=== PATIENT | female | born 1980 ===

== ENCOUNTER 2017-02-13 01:02 | Emergency (ER) | payer OTHER ==
[2017-02-13 01:19] VITALS: BP 140/80; PULSE 60; RESP 16; TEMP 98.1; O2SAT 98
[2017-02-13] MEDS ORDERED: Sodium Chloride 0.9% 1,000 ML IV STA (01:25)
--- NOTE | 2017-02-13 01:29 | ED PDOC ---
HPI: Female Pain Time Seen by Provider: 02/13/17 01:06 Chief Complaint (Nursing): Female Genitourinary Chief Complaint (Provider): UTI History Per: Patient Additional Complaint(s): 36 yo female, no PMH, presents to ED with complaints of UTI likely since Tuesday. Pt reports burning or urination, and blood in her urine. Pt was taking Azo with mild relief and trying to drink Cranberry Juice. Pt notes today pain went to her back and she became nauseous, prompting ED visit. No fevers Past Medical History Reviewed: Nursing Documentation, Vital Signs Vital Signs: Last Vital Signs Temp 98.1 F 02/13/17 01:16 Pulse 60 02/13/17 01:16 Resp 16 02/13/17 01:16 BP 140/80 02/13/17 01:16 Pulse Ox 98 02/13/17 01:16 - Medical History PMH: No Chronic Diseases - Surgical History Surgical History: No Surg Hx - Family History Family History: States: Unknown Family Hx - Home Medications Home Medications: Ambulatory Orders Medication Instructions Recorded Cephalexin [cephalexin] 500 mg PO BID 10 Days 02/13/17 oxyCODONE/Acetaminophen [Percocet 1 ea PO Q6 PRN #5 tab 02/13/17 5/325 mg Tab] - Allergies Allergies/Adverse Reactions: Allergies Allergy/AdvReac Type Severity Reaction Status Date / Time No Known Allergies Allergy Verified 02/13/17 01:15 Review of Systems ROS Statement: Except As Marked, All Systems Reviewed And Found Negative Genitourinary Female: Positive for: Dysuria, Hematuria Physical Exam - Reviewed Nursing Documentation Reviewed: Yes Vital Signs Reviewed: Yes - Physical Exam Appears: Positive for: Well, Non-toxic, No Acute Distress Head Exam: Positive for: ATRAUMATIC, NORMAL INSPECTION, NORMOCEPHALIC Skin: Positive for: Normal Color, Warm, DRY Eye Exam: Positive for: EOMI, Normal appearance, PERRL ENT: Positive for: Normal ENT Inspection Neck: Positive for: Normal, Painless ROM Cardiovascular/Chest: Positive for: Regular Rate, Rhythm Respiratory: Positive for: CNT, Normal Breath Sounds Gastrointestinal/Abdominal: Positive for: Normal Exam, Bowel Sounds, Soft Back: Positive for: L CVA Tenderness, R CVA Tenderness Extremity: Positive for: Normal ROM Neurologic/Psych: Positive for: Alert, Oriented - Laboratory Results Result Diagrams: 02/13/17 01:25 02/13/17 01:25 - ECG O2 Sat by Pulse Oximetry: 98 Medical Decision Making Medical Decision Making: Iv access established and treatment initiated with NS and Toradol Dip resulted (+) leuks, nites and blood IV Rocephin added Labs resulted and reviewed with pt who demonstrated full understanding Pt doing well on re-eval, no complaints of pain Disposition - Clinical Impression Clinical Impression: Urinary tract infection - Patient ED Disposition Is Patient to be Admitted: No - Disposition Disposition: Routine/Home Disposition Time: 03:52 Condition: STABLE Prescriptions: Cephalexin [cephalexin] 500 mg PO BID 10 Days oxyCODONE/Acetaminophen [Percocet 5/325 mg Tab] 1 ea PO Q6 PRN #5 tab PRN Reason: Pain, Severe (8-10) Instructions: Urinary Tract Infection in Women (ED)
[2017-02-13 01:43] LABS: BASO % 0.4 % (0.0-2.0); EOS # 0.5 K/uL (0.0-0.7); EOS % 4.6 % (0.0-4.0); HEMATOCRIT 37.8 % (34.0-47.0); LYMPH # 3.3 K/uL (1.0-4.3); LYMPH % 29.8 % (20.0-40.0); MEAN CELL VOLUME 94.1 fl (81.0-99.0); MEAN CORPUSCULAR HEMOGLOBIN 32.2 pg (27.0-31.0); MEAN CORPUSCULAR HGB CONC 34.3 g/dL (33.0-37.0); MEAN PLATELET VOLUME 9.5 fl (7.2-11.7); MONO # 0.8 K/uL (0.0-0.8); NEUT # 6.5 K/uL (1.8-7.0); NEUT % 58.2 % (50.0-75.0); NRBC % 0.1 % (0.0-0.0); RED CELL DISTRIBUTION WIDTH 13.4 % (11.5-14.5); WHITE BLOOD COUNT 11.2 K/uL (4.8-10.8)
[2017-02-13 01:47] LABS: RBC URINE 10 /hpf (0-3); URINE BACTERIA RARE (<OCC); URINE BILIRUBIN NEGATIVE (NEGATIVE); URINE BLOOD NEGATIVE (NEGATIVE); URINE COLOR AMBER (YELLOW); URINE GLUCOSE (UA) NEG (Normal); URINE KETONE NEGATIVE (NEGATIVE); URINE LEUKOCYTE ESTERASE TRACE Leu/uL (Negative); URINE PROTEIN 30 mg/dL (NEGATIVE); WBC URINE 36 /hpf (0-5)
[2017-02-13 01:49] LABS: CHLORIDE 100 mmol/L (98-107); POTASSIUM 3.7 MMOL/L (3.6-5.0); SODIUM 138 mmol/l (132-148)
[2017-02-13 01:51] LABS: AST/SGOT 38 U/L (14-36); BILIRUBIN,TOTAL 0.5 mg/dl (0.2-1.3); CARBON DIOXIDE 28 mmol/L (22-30); GFR AFRICAN-AMERICAN > 60
[2017-02-13 01:52] LABS: ALB/GLOB RATIO 1.3 (1.0-2.1); ALKALINE PHOSPHATASE 57 U/L (38-126); ALT/SGPT 42 U/L (9-52); BLOOD UREA NITROGEN 12 mg/dl (7-17); CALCIUM 9.4 mg/dL (8.4-10.2); GLUCOSE,RANDOM 100 mg/dL (65-105); TOTAL PROTEIN 7.5 G/DL (6.3-8.2)
[2017-02-13] MEDS ORDERED: cefTRIAXone (Rocephin) 1 gm Inj ONE (02:07)
[2017-02-13] MEDS ORDERED: Oxycodone/Acetaminophen 5/325 mg Tab PO STA (02:37)
[2017-02-13] MEDS ORDERED: Oxycodone/Acetaminophen 5/325 mg Tab ONE (02:44)
== END 2017-02-13 03:05 | disposition home or self-care (01) ==
LOC: H.ER 01:02
DX: N39.0 Urinary tract infection, site not specified (principal); R11.0 Nausea